=== PATIENT | male | born 1985 | race Caucasian/White ===

== ENCOUNTER 2018-07-26 19:34 | Emergency (ER) | payer MEDICAID, SELFPAY ==
[2018-07-26 19:43] VITALS: BP 119/54; PULSE 67; RESP 18; TEMP 36.4; O2SAT 100
--- NOTE | 2018-07-26 20:32 | ED.GENADUL ---
Disposition Clinical Impression: Leg laceration Disposition: HOME Condition: Fair Instructions: Care For Your Stitches (ED), Laceration (ED) Additional Instructions: Keep wound clean, dry, covered. Monitor for signs of infection including redness, warmth, drainage, fever/chills, discharge. If these arise please seek care urgently once again. Keep current dressing on for the next 24 hours. After that time, please cover with dry Band-Aid. He may wash with running water but do not soak or submerge this will increase her risk of infection. Please return in 10 days for suture removal. Seek care sooner if you develop new or worsening symptoms. Referrals: Gibran Doshi [Primary Care Provider] - Medical Decision Making - Medical Decision Making Patient presents today with chief complaint of laceration to the posterior aspect of the right lower extremity. Wound is not actively bleeding. Will obtain patient's tetanus status. Was approximately 4 cm in length located in the posterior medial right lower extremity. Exam is otherwise without acute abnormality. Calf is otherwise soft and nontender. Good range of motion of the ankle. Sensation is intact. Patient I discussed options for closure. We discussed risk/benefits as well as expected procedural steps. He voiced understanding and wished to proceed. Last tetanus was in 2011. Procedure note: Using standard sterile technique, the wound was anesthetized with 1% lidocaine plain, 8 cc was used.. Wound was then copiously irrigated with sterile saline and cleansed chlorhexidine. Wound is explored to base in a bloodless field. No foreign body debris was noted. Using 4-0 nylon, the wound was closed with #4 horizontal mattress sutures and #1 simple interrupted stitches. Patient tolerated procedure well. Patient I discussed wound care in depth. We discussed the signs symptoms of infection when to seek care urgently once again. He will keep current dressing on for the next 24 hours. After that time, he will cover with a new sterile dressing. Advised he may wash with running water and soap that he should not soak or submerge this will increase his risk of infection. He will return in 10 days for suture removal. All his questions and concerns were addressed and he is in agreement this plan. History of Present Illness - General Chief complaint: Laceration Stated complaint: LEG LACERATION Time Seen by Provider: 07/26/18 19:44 Source: patient, RN notes reviewed Mode of arrival: ambulatory Limitations: no limitations - History of Present Illness Initial comments: Patient is a 32-year-old male presenting today with chief complaint of laceration to the posterior medial aspect of the right lower leg. He reports a prior to arrival he was trying to cut a plastic bucket with a knife when he slipped while afterwards body slicing his leg. Unknown tetanus status. Denies other injury the time the incident. Denies any altered sensation. States that he has had some discomfort over the affected area with ambulation. - Related Data Buprenorphine HCl/Naloxone HCl [Suboxone 12 mg-3 mg Sl Film] 1 each SL DAILY film 03/08/18 Allergies Allergy/AdvReac Type Severity Reaction Status Date / Time No Known Allergies Allergy Unverified 07/26/18 19:50 Review of Systems Constitutional: no symptoms reported Respiratory: no symptoms reported Musculoskeletal: as per HPI Skin: as per HPI Neurological: as per HPI Past Medical History - Past Medical History Medical history: no medical history Psychiatric history: attention deficit General Exam - General Limitations: no limitations General appearance: alert, in no apparent distress - Eye Eye exam: Present: normal apperance - Respiratory Respiratory exam: Absent: respiratory distress - Extremities Exam Extremities exam: Present: full ROM, tenderness, normal capillary refill. Absent: normal inspection (Exam the patient's right lower extremity is significant for a 4 cm linear laceration that extends down the posterior medial aspect of the right lower extremity. Wound is approximately 5 cm inferior to the flexor surface of the knee. Wound is not actively bleeding. Appears to be into the subcutaneous tissue. I do not see any evidence of muscular or tendinous involvement. No knee effusion. No surrounding erythema. No discharge. Calf is soft and nontender. Good range of motion of the ankle. Sensation remains intact distal to the wound. Wound edges are by approximately 5 mm.), pedal edema, joint swelling, calf tenderness - Neurological Exam Neurological exam: Present: alert, abnormal gait (Antalgic gait) - Psychiatric Psychiatric exam: Present: normal affect, normal mood - Skin Skin exam: Absent: intact (As above) Course Vital Signs - 24 hr 07/26/18 19:43 Temperature 36.4 C L Pulse 67 Respiratory 18 Rate Blood Pressure 119/54 Pulse Oximetry 100
== END 2018-07-26 21:02 | disposition home or self-care (01) ==
PROVIDERS: Emergency Provider Student in an Organized Health Care Education/Training Program; PCP Family Medicine
DX: S81.811A Laceration without foreign body, right lower leg, initial encounter (principal); W26.0XXA Contact with knife, initial encounter
CPT/HCPCS: 12002

== ENCOUNTER 2019-03-07 12:47 | Emergency (ER) | payer MEDICAID, SELFPAY ==
[2019-03-07 12:50] VITALS: BP 132/70; PULSE 77; RESP 20; TEMP 36.9; O2SAT 100
--- NOTE | 2019-03-07 12:59 | ED.GENADUL_ITS ---
Discharge Plan Disposition Patient Disposition: HOME Condition: Improving Discharge Details Chief Complaint: EarProblem Clinical Impression: Acute right otitis media Primary Care Provider: Gibran Doshi ED Provider: Keith Workman Home Meds and New Rx's Prescriptions: New amoxicillin-pot clavulanate 875-125 mg tablet 1 tab PO BID 10 Days Qty: 20 RF: 0 Continued buprenorphine-naloxone [Suboxone] 1 EACH film 1 film Sublingual DAILY RF: 0 Discharge Instructions Instructions: Otitis Media (ED) Additional Instructions: Home to rest this evening. Small, frequent sips of fluids to maintain hydration. Tylenol if needed for discomfort. Take antibiotics as prescribed. As we discussed, I recommend you have a [id number] probiotic or live culture yogurt once daily in between the doses of antibiotics. Return for any acute concerns. Medical Decision Making 33-year-old male with recent URI presents with right ear pain over 1 days time. He is afebrile, well-appearing, exam is reassuring but does demonstrate evidence of acute right otitis media. I will treat with a course of Augmentin. Discussed with him the use of probiotic or live culture yogurt to offset any GI effects. He is stable for discharge to home at this time. HPI General Mode of arrival: ambulatory . Date/Time Provider Initiated Documentation: 03/07/19 12:50 . Limitations to Documentation: no limitations . Information obtained by: patient . History of Present Illness 33 year old M presents to the emergency department with the chief complaint of Right ear pain in the face of recent URI with rhinorrhea, described as moderate, Quality is described as dull and constant, and is localized to the head and right. Patient reports no radiation. and it has been constant. No relieving factors improve symptom(s), No exacerbating factors reported . Patient notes cough. Patient did receive the following treatments prior to arrival, none Related Data Home Medications Medication Instructions Recorded Confirmed buprenorphine-naloxone [Suboxone] 1 film SUBLINGUAL DAILY film 03/08/18 03/07/19 amoxicillin-pot clavulanate 1 tab PO BID 10 Days #20 tab 03/07/19 Previous Rx's Medication Instructions Recorded amoxicillin-pot clavulanate 1 tab PO BID 10 Days #20 tab 03/07/19 Allergies Allergy/AdvReac Type Severity Reaction Status Date / Time No Known Allergies Allergy Unverified 03/07/19 12:52 General Stated Complaint: EarProblem KAITLIN: 4 Review of Systems Review of Systems 6systems reviewed and otherwise negative [facility] Medical History Attention deficit hyperactivity disorder Hearing loss Surgical History Arthroscopy (10/02/12) mastoidectomy removal Family History Mother Personal history of malignant neoplasm Father No problems noted. Sister No problems noted. Social History Smoking/Tobacco Use Status: Current every day Alcohol Intake: current Alcohol Intake frequency: holidays/special occasions only Drug use: Occasionally Substance use type: former substance user and marijuana Do you feel safe at home: Yes Do you feel safe in your relationship?: Yes Exam Narrative Exam Narrative: GEN: awake, alert, oriented 3. Pleasant, well groomed, interactive. HEAD: Normocephalic, atraumatic ENT: Mucous membranes moist, oropharynx unremarkable, External ear exam unremarkable. Right tympanic membrane is significantly distended and erythematous with loss of light reflex, left tympanic membranes partially occluded with cerumen but otherwise unremarked EYES: PERRL, EOMI NECK: Full ROM, no MAEGAN, no menigismus CHEST/RESP: Nontender, clear to auscultation bilateral, no wheeze/rhonchi/rales CARDIOVASCULAR: RRR, no murmur, rub danyelle. 2+ Rad pulse bilateral EXT: Full ROM, no edema, no rash Neuro: Grossly normal neurologic exam, conversant, interactive. Psych: Speech fluent, thoughts congruent, affect normal Course Vital Signs Temperature 36.9 C 03/07/19 12:50 Pulse 77 03/07/19 12:50 Respiratory Rate 20 03/07/19 12:50 Blood Pressure 132/70 03/07/19 12:50 Pulse Oximetry 100 03/07/19 12:50 Temperature 36.9 C 03/07/19 12:50 Temperature Source Temporal Artery Scan 03/07/19 12:50 Pulse 77 03/07/19 12:50 Respiratory Rate 20 03/07/19 12:50 Respiratory Effort Non-Labored 03/07/19 12:50 Blood Pressure 132/70 03/07/19 12:50 Pulse Oximetry 100 03/07/19 12:50 Oxygen Delivery Method Room Air 03/07/19 12:50 Oxygen Flow Rate 0 03/07/19 12:50 Pain Level 8 03/07/19 12:50
[2019-03-07 15:52] VITALS: BP 132/70; PULSE 77; RESP 20; TEMP 36.9; O2SAT 100
== END 2019-03-07 13:29 | disposition home or self-care (01) ==
LOC: ER 13:19
PROVIDERS: Emergency Provider Emergency Medicine; PCP Family Medicine
DX: H66.91 Otitis media, unspecified, right ear (principal); F17.210 Nicotine dependence, cigarettes, uncomplicated
CPT/HCPCS: 99283

== ENCOUNTER 2019-05-18 10:53 | Emergency (ER) | payer MEDICAID, SELFPAY ==
[2019-05-18 10:57] VITALS: BP 133/67; PULSE 62; RESP 15; TEMP 36.7; O2SAT 98
--- NOTE | 2019-05-18 11:03 | DI.RAD_ITS ---
SYMPTOM/DIAGNOSIS: STEPPED ON NAIL, ? FOREIGN BODY RIGHT FOOT: No fracture or dislocation is seen. There is no radiopaque foreign body. There is no abnormal soft tissue gas collection. IMPRESSION: Negative right foot.
--- NOTE | 2019-05-18 11:04 | W.ED.GENAD ---
Discharge Plan Disposition Patient Disposition: HOME Condition: Good Discharge Details Chief Complaint: Laceration Clinical Impression: Puncture wound of foot Primary Care Provider: Gibran Doshi ED Provider: Radha Garcia Home Meds and New Rx's Prescriptions: New cephalexin [Keflex] 500 mg capsule 500 mg PO BID Qty: 10 RF: 0 Continued buprenorphine-naloxone [Suboxone] 1 EACH film 1 film Sublingual DAILY RF: 0 Discharge Instructions Instructions: Puncture Wound (ED) Additional Instructions: Keep wound clean and dry. Monitor for signs of infection including redness, warmth, drainage, increased pain, fever/chills. If these or other new/worsening symptoms arise please seek care urgently once again. Please take antibiotics as prescribed to help prevent infection. Please follow-up with primary care next week for wound evaluation. Stand Alone Forms: Work Release Referrals: Gibran Doshi [Primary Care Provider] - Discharge Data Discharge Date/Time-TO BE ENTERED AT DEPARTURE: 05/18/19 11:56 Medical Decision Making Patient is a 33 year old male presenting today after stepping on a nail. States that he was working with a friend and stepped on a nail through his shoe. No other injury at the time of the incident. Denies numbness/tingling/weakness. Last tetanus 2011, will update this today. On exam, shu has a 3mm puncture wound to forefoot. Piece of what appears to be the sole of his shoe, was sitting at the opening, this was removed. No other FB/debris noted. Will obtain XR to evaluate for retained metal. Plan to update tetanus, begin on abx. Will give Tylenol and Ibuprofen for pain. XR reviewed by myself and radiologist, no FB or bony abnormality noted. Discussed these findings with the patient. His tetanus is updated today. We placed prophylactically on Keflex. Wound was copiously irrigated by nursing staff. He was given strict return precautions. Work note at his request. Advise follow-up with primary care next week for wound check. All of his questions and concerns were addressed and he is in agreement this plan HPI General Mode of arrival: ambulatory. Date/Time Provider Initiated Documentation: 05/18/19 10:57. Limitations to Documentation: no limitations. Information obtained by: patient and RN notes reviewed. History of Present Illness 33 year old M presents to the emergency department with the chief complaint of stepped on nail, puncture wound right foot, described as moderate, with intensity rated at 8. Quality is described as sharp, and is localized to the right and lower extremity. Patient reports no radiation. Patient started experiencing this minute(s) and it has been constant. Immobilization improves symptom(s), Movement worsens symptoms (worse with WB activities) . Patient notes no other symptoms.. Patient did receive the following treatments prior to arrival, none Related Data Home Medications Medication Instructions Recorded Confirmed buprenorphine-naloxone [Suboxone] 1 film SUBLINGUAL DAILY film 03/08/18 05/18/19 cephalexin [Keflex] 500 mg PO BID #10 cap 05/18/19 Previous Rx's Medication Instructions Recorded cephalexin [Keflex] 500 mg PO BID #10 cap 05/18/19 Allergies Allergy/AdvReac Type Severity Reaction Status Date / Time No Known Allergies Allergy Unverified 05/18/19 11:01 General Stated Complaint: Laceration KAITLIN: 4 Review of Systems Constitutional Reports as per HPI, Denies chills and Denies fever(s) Musculoskeletal Reports as per HPI Integumentary/Breasts Reports as per HPI Neurologic Reports as per HPI, Denies sensory deficit and Denies paresthesias [facility] Medical History Attention deficit hyperactivity disorder Hearing loss Surgical History Arthroscopy (10/02/12) mastoidectomy removal Social History Smoking/Tobacco Use Status: Current every day Alcohol Intake: current Alcohol Intake frequency: holidays/special occasions only Drug use: Occasionally Substance use type: former substance user and marijuana Do you feel safe at home: Yes Do you feel safe in your relationship?: Yes Exam Const General: cooperative, healthy appearing, comfortable, no acute distress and well developed Nutritional Appearance: average body habitus and well nourished Orientation: alert and awake Resp Effort & Inspection: normal respiratory effort, able to speak in complete sentences and no respiratory distress Cardio Rate: regular rate Rhythm: regular rhythm Neuro General: alert and awake Cognition: normal cognition Speech: speech normal Gait: normal gait Sensory Exam: no sensory deficits noted Extrem General: abnormal to inspection (skin as above), full ROM, normal capillary refill, normal exam except as noted (puncture wound as above), no joint enlargement, no pedal edema, no calf tenderness and normal gait Right lower extremity: full ROM, normal capillary refill, no joint enlargement and foot Details: normal capillary refill, tenderness Location: of the dorsal foot (over puncture wound on forefoot) Location: distally, toes with normal ROM, no edema, puncture wound, vascular exam Details: dorsalis pedis pulse present, posterior tibial pulse present and normal capillary refill, tendon exam Details: active flexion normal and active extension normal and motor-sensory exam Details: light-touch normal; abnormal to inspection (u), no unusual warmth, no abrasion and no ecchymosis Psych Appearance: grossly normal and well kempt Mental Status: mental status grossly normal Speech and Movement: speech and movement normal Course Vital Signs Temperature 36.7 C 05/18/19 10:57 Pulse 62 05/18/19 10:57 Respiratory Rate 15 05/18/19 10:57 Blood Pressure 133/67 05/18/19 10:57 Pulse Oximetry 98 05/18/19 10:57 Temperature 36.7 C 05/18/19 10:57 Temperature Source Temporal Artery Scan 05/18/19 10:57 Pulse 62 05/18/19 10:57 Respiratory Rate 15 05/18/19 10:57 Respiratory Effort Non-Labored 05/18/19 11:00 Blood Pressure 133/67 05/18/19 10:57 Blood Pressure Position Supine 05/18/19 10:57 Pulse Oximetry 98 05/18/19 10:57 Oxygen Delivery Method Room Air 05/18/19 10:57 Oxygen Flow Rate 0 05/18/19 10:57 Pain Level 8 05/18/19 10:57
--- NOTE | 2019-05-18 11:07 | ED.GENADUL_ITS ---
Discharge Plan Disposition Patient Disposition: HOME Condition: Good Discharge Details Chief Complaint: Laceration Clinical Impression: Puncture wound of foot Primary Care Provider: Gibran Doshi ED Provider: Radha Garcia Home Meds and New Rx's Prescriptions: New cephalexin [Keflex] 500 mg capsule 500 mg PO BID Qty: 10 RF: 0 Continued buprenorphine-naloxone [Suboxone] 1 EACH film 1 film Sublingual DAILY RF: 0 Discharge Instructions Instructions: Puncture Wound (ED) Additional Instructions: Keep wound clean and dry. Monitor for signs of infection including redness, warmth, drainage, increased pain, fever/chills. If these or other new/worsening symptoms arise please seek care urgently once again. Please take antibiotics as prescribed to help prevent infection. Please follow-up with primary care next week for wound evaluation. Stand Alone Forms: Work Release Referrals: Gibran Doshi [Primary Care Provider] - Discharge Data Discharge Date/Time-TO BE ENTERED AT DEPARTURE: 05/18/19 11:56 Medical Decision Making Patient is a 33 year old male presenting today after stepping on a nail. States that he was working with a friend and stepped on a nail through his shoe. No other injury at the time of the incident. Denies numbness/tingling/weakness. Last tetanus 2011, will update this today. On exam, shu has a 3mm puncture wound to forefoot. Piece of what appears to be the sole of his shoe, was sitting at the opening, this was removed. No other FB/debris noted. Will obtain XR to evaluate for retained metal. Plan to update tetanus, begin on abx. Will give Tylenol and Ibuprofen for pain. XR reviewed by myself and radiologist, no FB or bony abnormality noted. Discussed these findings with the patient. His tetanus is updated today. We placed prophylactically on Keflex. Wound was copiously irrigated by nursing staff. He was given strict return precautions. Work note at his request. Advise follow-up with primary care next week for wound check. All of his questions and concerns were addressed and he is in agreement this plan HPI General Mode of arrival: ambulatory . Date/Time Provider Initiated Documentation: 05/18/19 10:57 . Limitations to Documentation: no limitations . Information obtained by: patient and RN notes reviewed . History of Present Illness 33 year old M presents to the emergency department with the chief complaint of stepped on nail, puncture wound right foot, described as moderate, with intensity rated at 8. Quality is described as sharp, and is localized to the right and lower extremity. Patient reports no radiation. Patient started experiencing this minute(s) and it has been constant. Immobilization improves symptom(s), Movement worsens symptoms (worse with WB activities) . Patient notes no other symptoms.. Patient did receive the following treatments prior to arrival, none Related Data Home Medications Medication Instructions Recorded Confirmed buprenorphine-naloxone [Suboxone] 1 film SUBLINGUAL DAILY film 03/08/18 05/18/19 cephalexin [Keflex] 500 mg PO BID #10 cap 05/18/19 Previous Rx's Medication Instructions Recorded cephalexin [Keflex] 500 mg PO BID #10 cap 05/18/19 Allergies Allergy/AdvReac Type Severity Reaction Status Date / Time No Known Allergies Allergy Unverified 05/18/19 11:01 General Stated Complaint: Laceration KAITLIN: 4 Review of Systems Constitutional Reports as per HPI, Denies chills and Denies fever(s) Musculoskeletal Reports as per HPI Integumentary/Breasts Reports as per HPI Neurologic Reports as per HPI, Denies sensory deficit and Denies paresthesias [facility] Medical History Attention deficit hyperactivity disorder Hearing loss Surgical History Arthroscopy (10/02/12) mastoidectomy removal Social History Smoking/Tobacco Use Status: Current every day Alcohol Intake: current Alcohol Intake frequency: holidays/special occasions only Drug use: Occasionally Substance use type: former substance user and marijuana Do you feel safe at home: Yes Do you feel safe in your relationship?: Yes Exam Const General: cooperative, healthy appearing, comfortable, no acute distress and well developed Nutritional Appearance: average body habitus and well nourished Orientation: alert and awake Resp Effort & Inspection: normal respiratory effort, able to speak in complete sentences and no respiratory distress Cardio Rate: regular rate Rhythm: regular rhythm Neuro General: alert and awake Cognition: normal cognition Speech: speech normal Gait: normal gait Sensory Exam: no sensory deficits noted Extrem General: abnormal to inspection (skin as above), full ROM, normal capillary refill, normal exam except as noted (puncture wound as above), no joint enlargement, no pedal edema, no calf tenderness and normal gait Right lower extremity: full ROM, normal capillary refill, no joint enlargement and foot Details: normal capillary refill, tenderness Location: of the dorsal foot (over puncture wound on forefoot) Location: distally, toes with normal ROM, no edema, puncture wound, vascular exam Details: dorsalis pedis pulse present, posterior tibial pulse present and normal capillary refill, tendon exam Details: active flexion normal and active extension normal and motor-sensory exam Details: light-touch normal; abnormal to inspection (u), no unusual warmth, no abrasion and no ecchymosis Psych Appearance: grossly normal and well kempt Mental Status: mental status grossly normal Speech and Movement: speech and movement normal Course Vital Signs Temperature 36.7 C 05/18/19 10:57 Pulse 62 05/18/19 10:57 Respiratory Rate 15 05/18/19 10:57 Blood Pressure 133/67 05/18/19 10:57 Pulse Oximetry 98 05/18/19 10:57 Temperature 36.7 C 05/18/19 10:57 Temperature Source Temporal Artery Scan 05/18/19 10:57 Pulse 62 05/18/19 10:57 Respiratory Rate 15 05/18/19 10:57 Respiratory Effort Non-Labored 05/18/19 11:00 Blood Pressure 133/67 05/18/19 10:57 Blood Pressure Position Supine 05/18/19 10:57 Pulse Oximetry 98 05/18/19 10:57 Oxygen Delivery Method Room Air 05/18/19 10:57 Oxygen Flow Rate 0 05/18/19 10:57 Pain Level 8 05/18/19 10:57
[2019-05-18] MEDS: Acetaminophen 325 MG TAB 650 MG PO (11:12)
[2019-05-18] MEDS: Ibuprofen 600 MG TAB PO (11:12)
[2019-05-18 11:54] VITALS: BP 123/71; PULSE 55; RESP 18; TEMP 36.8; O2SAT 99
== END 2019-05-18 11:56 | disposition home or self-care (01) ==
PROVIDERS: Emergency Provider Physician Assistant; PCP Family Medicine
DX: S91.331A Puncture wound without foreign body, right foot, initial encounter (principal); W45.8XXA Other foreign body or object entering through skin, initial encounter
CPT/HCPCS: 90471; 99283; 73630; 99282

== ENCOUNTER 2019-07-05 10:27 | Emergency (ER) | payer MEDICAID, SELFPAY ==
[2019-07-05 10:30] VITALS: BP 147/85; PULSE 75; RESP 20; TEMP 36; O2SAT 97
--- NOTE | 2019-07-05 10:40 | ED.GENADUL_ITS ---
Discharge Plan Discharge Details Chief Complaint: Trauma Primary Care Provider: Gibran Doshi ED Provider: Keith Workman Home Meds and New Rx's Prescriptions: No Action buprenorphine-naloxone [Suboxone] 1 EACH film 1 film Sublingual DAILY RF: 0 Medical Decision Making 33-year-old male who was painting on a stepladder and while distending it, slipped and fell in a tumbling fashion down a flight of stairs. He denied a loss of consciousness. He complains of left shoulder, left hip, left knee pain. No head/neck/chest/back/abdomen discomfort. Slightly hypertensive at 147/85, otherwise unremarkable vital signs. He does have tenderness overlying the joints of the left shoulder, left hip, left knee. Given acetaminophen, ice, referred for x-ray. No acute findings on knee or hip radiographs. There is question of small nondisplaced acromion fracture. I discussed with Dr. Banks will treat with immobilization in sling and follow- up in orthopedic clinic. Patient has normal motor, sensory, vascular testing. No indication for further work-up at this time. Patient stable and appropriate for discharge. HPI General Date/Time Provider Initiated Documentation: 07/05/19 10:31 . Limitations to Documentation: no limitations . Information obtained by: patient . History of Present Illness 33 year old M presents to the emergency department with the chief complaint of Fall and left- sided pain, Quality is described as dull and constant, and is localized to the left, upper extremity and lower extremity. Patient reports no radiation. Patient started experiencing this minute(s) and it has been constant. No relieving factors improve symptom(s), No exacerbating factors reported . Patient notes no other symptoms.; denies chest pain and headaches. Patient did receive the following treatments prior to arrival, none Related Data Home Medications Medication Instructions Recorded Confirmed buprenorphine-naloxone [Suboxone] 1 film SUBLINGUAL DAILY film 03/08/18 07/05/19 Allergies Allergy/AdvReac Type Severity Reaction Status Date / Time No Known Allergies Allergy Unverified 07/05/19 10:40 General Stated Complaint: Trauma KAITLIN: 2 Review of Systems Review of Systems No headache. He denies neck/back/chest/abdomen discomfort. No loss of consciousness. 6 systems reviewed and otherwise - [facility] Medical History Attention deficit hyperactivity disorder Hearing loss Surgical History Arthroscopy (10/02/12) mastoidectomy removal Social History Smoking/Tobacco Use Status: Current every day Alcohol Intake: current Alcohol Intake frequency: holidays/special occasions only Drug use: Occasionally Substance use type: former substance user and marijuana Do you feel safe at home: Yes Do you feel safe in your relationship?: Yes Exam Narrative Exam Narrative: GEN: awake, alert, oriented 3. Pleasant, well groomed, interactive. HEAD: Normocephalic, atraumatic ENT: Mucous membranes moist, oropharynx unremarkable, External ear exam unremarkable EYES: PERRL, EOMI NECK: Full ROM, no MAEGAN, no menigismus CHEST/RESP: Nontender, clear to auscultation bilateral, no wheeze/rhonchi/rales CARDIOVASCULAR: RRR, no murmur, rub danyelle. 2+ Rad pulse bilateral ABDOMEN: Soft, nontender, no mass. +Bowel sounds EXT: Full ROM, no edema, no rash. Left AC joint tender to palpation. Upper extremity motor is 5 out of 5 and sensation intact throughout. The left lateral hip is tender to palpation. Normal internal and external rotation. Motor 5 out of 5 in the lower extremity. Left anterior knee tender with note of mild ecchymosis present. No laxity of the joint. Neuro: Grossly normal neurologic exam, conversant, interactive. Psych: Speech fluent, thoughts congruent, affect normal Course Vital Signs Temperature 36 C L 07/05/19 10:30 Pulse 75 07/05/19 10:30 Respiratory Rate 20 07/05/19 10:30 Blood Pressure 147/85 H 07/05/19 10:30 Pulse Oximetry 97 07/05/19 10:30 Temperature 36 C L 07/05/19 10:30 Temperature Source Temporal Artery Scan 07/05/19 10:30 Pulse 75 07/05/19 10:30 Respiratory Rate 20 07/05/19 10:30 Respiratory Effort Non-Labored 07/05/19 10:34 Respiratory Depth Normal 07/05/19 10:34 Respiratory Pattern Normal 07/05/19 10:34 Blood Pressure 147/85 H 07/05/19 10:30 Pulse Oximetry 97 07/05/19 10:30 Oxygen Delivery Method Room Air 07/05/19 10:30 Oxygen Flow Rate 0 07/05/19 10:30 Pain Level 6 07/05/19 10:34
[2019-07-05] MEDS: Acetaminophen 500 MG TAB 1000 MG PO (10:46)
--- NOTE | 2019-07-05 11:14 | DI.RAD_ITS ---
SYMPTOM/DIAGNOSIS: FELL, KNEE, HIP AND SHOULDER PAIN LEFT HIP: Two views were obtained. No fracture is seen. LEFT SHOULDER: Five views were obtained. There are mild hypertrophic degenerative changes of the acromioclavicular joint. There is mild deformity of the acromion at the AC joint, nondisplaced fracture not excluded. Clinical correlation requested regarding the site of the patient's injury. There is no evidence of a glenohumeral dislocation. CONCLUSION: Questionable findings involving the acromion, nondisplaced acromial fracture not excluded. Please correlate clinically and if clinically indicated, additional evaluation with CT may be considered. LEFT KNEE: Three views were obtained. There are marginal osteophytes noted at multiple sites involving the bones of the knee. No evidence of acute fracture or dislocation.
== END 2019-07-05 12:07 | disposition home or self-care (01) ==
PROVIDERS: Emergency Provider Emergency Medicine; PCP Family Medicine
DX: M25.512 Pain in left shoulder (principal); M25.552 Pain in left hip; M25.562 Pain in left knee; W11.XXXA Fall on and from ladder, initial encounter; W10.8XXA Fall (on) (from) other stairs and steps, initial encounter
CPT/HCPCS: 73562; 99284; 73030; 73502; L3650

== ENCOUNTER 2020-06-06 19:55 | Emergency (ER) | payer MEDICAID, SELFPAY ==
[2020-06-06 20:00] VITALS: BP 149/78; PULSE 73; RESP 16; TEMP 36.7; O2SAT 98
--- NOTE | 2020-06-06 20:03 | ED.GENADUL_ITS ---
Discharge Plan Disposition Patient Disposition: HOME Condition: Good Discharge Details Chief Complaint: Orthopedic Clinical Impression: Abscess of finger of left hand Primary Care Provider: Gibran Doshi ED Provider: Thomas Peña Home Meds and New Rx's Prescriptions: New cephalexin 500 mg capsule 500 mg PO Q8H Qty: 20 RF: 0 Continued buprenorphine-naloxone [Suboxone] 12-3 mg film 1 film Sublingual DAILY RF: 0 Discharge Instructions Instructions: Abscess (ED) Additional Instructions: Infection should get better now that wound is open and allowing for drainage. Try to keep the wound open for a few days to allow for drainage. Keep it clean, dry and covered. Antibiotic as directed. Acetaminophen or ibuprofen as needed for pain. Elevate hand for swelling. Return to ED for increasing pain, swelling, spreading redness especially up the back of the hand or arm, fever. Referrals: [facility] [Provider Group] Gibran Doshi. [Primary Care Provider] - Medical Decision Making Patient with wound infection/abscess of the left index finger. Tetanus is up-to-date. Discussed options with patient. Digital block done with lidocaine 1% plain. Finger prepped with Betadine. Incised along the cuticle just above the nail as well as the prior laceration site. Some purulent material expressed along with some bleeding which was easily controlled. Patient will be started on cephalexin. Ibuprofen or acetaminophen for pain. Elevate extremity for the next few days. Watch for worsening infection and return to ED if worsening redness/swelling/pain, fever, progression of arm. HPI General Mode of arrival: ambulatory . Date/Time Provider Initiated Documentation: 06/06/20 20:03 . Limitations to Documentation: no limitations . Information obtained by: patient and RN notes reviewed . HPI Narrative: Patient presents to ED with left index finger pain and swelling. Patient is left-hand dominant. Sustained the initial injury approximately 2 weeks ago on a napper grinder. Laceration to the distal dorsal part of the index finger which she took care of at home. It had healed up for the most part but in the last 24 hours has now become swollen, painful, red and draining purulent material. Denies any systemic symptoms. Thought about opening it back up on his own at home but decided he should come here to have it done. Related Data Home Medications Medication Instructions Recorded Confirmed buprenorphine 12 mg-naloxone 3 mg 1 film SUBLINGUAL DAILY film 09/03/19 09/03/19 sublingual film cephalexin 500 mg PO Q8H #20 cap 06/06/20 Previous Rx's Medication Instructions Recorded cephalexin 500 mg PO Q8H #20 cap 06/06/20 Allergies Allergy/AdvReac Type Severity Reaction Status Date / Time No Known Allergies Allergy Unverified 07/05/19 10:40 General Stated Complaint: Orthopedic KAITLIN: 4 Review of Systems Constitutional Constitutional: Denies chills and Denies fever(s) Integumentary/Breasts Skin/Breast: Reports erythema and Reports wounds [facility] Medical History Attention deficit hyperactivity disorder Hearing loss Surgical History Arthroscopy (10/02/12) left knee mastoidectomy on the left as a child removal 10/27/98 removal of cholesteatoma left ear canal Social History Smoking/Tobacco Use Status: Current every day Tobacco Type: cigarettes Smoking packs per day: 1 Smoking cigarettes per day: 20.0 Alcohol Intake: current Alcohol Intake frequency: holidays/special occasions only Drug use: Occasionally Substance use type: former substance user and marijuana Do you feel safe at home: Yes Do you feel safe in your relationship?: Yes Exam Const General: cooperative, healthy appearing, comfortable and no acute distress Orientation: alert and oriented x3 HENMT Head: normocephalic and atraumatic Resp Effort & Inspection: normal respiratory effort Skin Wounds: wounds noted (L index finger behind cuticle w/ wound w/ erythema/swelling/fluctuance) Extrem Other: Left hand with wound as described above. Otherwise normal hand with normal cap refill, sensation, range of motion. Course Vital Signs Vital signs: Vital Signs Temperature 98.1 F 06/06/20 20:00 Pulse 73 06/06/20 20:00 Respiratory Rate 16 06/06/20 20:00 Blood Pressure 149/78 H 06/06/20 20:00 Pulse Oximetry 98 06/06/20 20:00 Temperature 98.1 F 06/06/20 20:00 Temperature Source Temporal Artery Scan 06/06/20 20:00 Pulse 73 06/06/20 20:00 Respiratory Rate 16 06/06/20 20:00 Blood Pressure 149/78 H 06/06/20 20:00 Blood Pressure Position Sitting 06/06/20 20:00 Pulse Oximetry 98 06/06/20 20:00 Oxygen Delivery Method Room Air 06/06/20 20:00 Oxygen Flow Rate 0 06/06/20 20:00 Pain Level 6 06/06/20 20:00 Procedures Abscess I/D Site: Hand Side (if applicable): Left Technique: Incised with #11 Blade Amount of fluid expressed (mL): 0.5 Irrigation: Yes Packing used?: None Complications: Bleeding (minimal) Nerve Block Nerve Block 1: Time out performed: Yes Local Anesthetic: Lidocaine 1% Amount of anesthesia used (mL): 4 Side: left Nerve Blocks: digital Procedure Successful: Yes Patient Tolerated Procedure: well Complications: none
[2020-06-06] MEDS: Cephalexin 500 MG CAP, 2 CAPS/BTL PO (20:38)
== END 2020-06-06 20:45 | disposition home or self-care (01) ==
PROVIDERS: Emergency Provider Emergency Medicine; PCP Family Medicine
DX: S61.211A Laceration without foreign body of left index finger without damage to nail, initial encounter (principal); L02.512 Cutaneous abscess of left hand; W31.1XXA Contact with metalworking machines, initial encounter
CPT/HCPCS: 10060

== ENCOUNTER 2020-11-19 10:12 | Outpatient (CLI) | payer MEDICAID, SELFPAY ==
[2020-11-20 18:46] LABS: COVID-19 RT-PCR UVMMC Result Negative (Negative)
== END 2020-11-19 10:32 ==
PROVIDERS: PCP Family Medicine; Visit Provider Family Medicine
DX: Z20.828 Contact with and (suspected) exposure to other viral communicable diseases (principal)
CPT/HCPCS: U0003

== ENCOUNTER 2020-12-16 08:12 | Emergency (ER) | payer MEDICAID, SELFPAY ==
--- NOTE | 2020-12-16 08:15 | DI.RAD_ITS ---
EXAM: XR HAND RT COMPLETE CLINICAL HISTORY: Crush injury. TECHNIQUE: 2D digital imaging was performed. COMPARISON: No exams were available for comparison FINDINGS: BONES: No acute fracture is present. No bony destructive lesion is seen. JOINTS: No dislocation present. SOFT TISSUE: Generalized soft tissue swelling of the hand. No radiopaque foreign bodies are identifi ed. IMPRESSION: 1. No acute fracture or dislocation. 2. Generalized soft tissue swelling of the hand. DATA REPOSITORY: RADIATION DOSE DELIVERED:
[2020-12-16 08:16] VITALS: BP 147/78; PULSE 77; RESP 15; TEMP 36.7; O2SAT 97
--- NOTE | 2020-12-16 08:21 | W.ED.GENAD ---
Discharge Plan Disposition Patient Disposition: HOME Condition: Stable Discharge Details Clinical Impression: Crushing injury of hand, right Primary Care Provider: Gibran Doshi ED Provider: Sheri Andrews Home Meds and New Rx's Prescriptions: No Action buprenorphine-naloxone [Suboxone] 12-3 mg film 1 film Sublingual DAILY RF: 0 Discharge Instructions Instructions: Crush Injury (ED) Additional Instructions: Rest, Ice, Compression, elevation. Please take Tylenol or Ibuprofen with food every 4-6 hours as needed for pain and swelling. X-ray today shows no broken bones. Please return to the ED if swelling increases severe pain not relieved by Tylenol or ibuprofen, if there appears to be any problems with circulation to your fingers or any concerns. Follow up with primary care provider in 3-5 days. Return to ED sooner if any worsening or concerns. Increase oral fluids. Stand Alone Forms: Work Release Referrals: Gibran Doshi. [Primary Care Provider] - Medical Decision Making 35-year-old male presents to the ED with chief complaint of right hand pain after a crush type injury this morning at work. Patient reports he was putting some rafters of when a beam fell onto his right hand while he was on the ladder. He denies any other injuries. He does have superficial ecchymosis and abrasions noted to the dorsum of his right hand tenderness over the snuffbox and thumb. Hand is pink warm dry, cap refill less than 2 sec. He does have full flexion and extension of his right wrist and elbow. He does take Suboxone daily. He did not take any Tylenol or ibuprofen prior to arrival. EXAM: XR HAND RT COMPLETE CLINICAL HISTORY: Crush injury. TECHNIQUE: 2D digital imaging was performed. COMPARISON: No exams were available for comparison FINDINGS: BONES: No acute fracture is present. No bony destructive lesion is seen. JOINTS: No dislocation present. SOFT TISSUE: Generalized soft tissue swelling of the hand. No radiopaque foreign bodies are identified. IMPRESSION: 1. No acute fracture or dislocation. 2. Generalized soft tissue swelling of the hand. Patient given ice pack, and her milligrams ibuprofen and Johan wrap here in department. Discussed strict return instructions and home care, verbalized understanding. Patient remained hemodynamically stable and extremity was neurovascularly intact at the time of this dictation. This text was generated using [employer] system, please disregard any oddities of phrase or misspellings. HPI General Mode of arrival: ambulatory. Date/Time Provider Initiated Documentation: 12/16/20 08:13. Limitations to Documentation: no limitations. Information obtained by: patient. HPI Narrative: 35-year-old male presents to the ED with chief complaint of right hand pain after a crush type injury this morning at work. Patient reports he was putting some rafters of when a beam fell onto his right hand while he was on the ladder. He denies any other injuries. He does have superficial ecchymosis and abrasions noted to the dorsum of his right hand tenderness over the snuffbox and thumb. Hand is pink warm dry, cap refill less than 2 sec. He does have full flexion and extension of his right wrist and elbow. He does take Suboxone daily. He did not take any Tylenol or ibuprofen prior to arrival. Related Data Home Medications Medication Instructions Recorded Confirmed buprenorphine 12 mg-naloxone 3 mg 1 film SUBLINGUAL DAILY film 09/03/19 12/16/20 sublingual film Allergies Allergy/AdvReac Type Severity Reaction Status Date / Time No Known Allergies Allergy Unverified 12/16/20 08:20 General Stated Complaint: Orthopedic KAITLIN: 4 Review of Systems All systems reviewed & are unremarkable except as noted in HPI and below Musculoskeletal Musculoskeletal: Reports arthralgias and Reports joint swelling (Right hand) [facility] Medical History (Updated 12/16/20 @ 09:20 by Sheri Andrews) Attention deficit hyperactivity disorder Hearing loss Surgical History Arthroscopy (10/02/12) left knee mastoidectomy on the left as a child removal 10/27/98 removal of cholesteatoma left ear canal Family History Mother Personal history of malignant neoplasm Breast Father No problems noted. Sister No problems noted. Social History Smoking/Tobacco Use Status: Current every day Tobacco Type: cigarettes Smoking packs per day: 1 Smoking cigarettes per day: 20.0 Smoking risk assessment performed?: Yes Alcohol Intake: current Alcohol Intake frequency: holidays/special occasions only Drug use: Occasionally Substance use type: former substance user and marijuana Do you feel safe at home: Yes Do you feel safe in your relationship?: Yes Exam Const General: cooperative, healthy appearing and well developed Nutritional Appearance: average body habitus and well nourished Orientation: alert, awake and oriented x3 Extrem General: capillary refill normal and normal exam except as noted Right upper extremity: normal capillary refill and hand Details: normal capillary refill, neurosensory exam normal, tenderness, normal ROM of fingers, swelling Location: of the dorsal hand and of the thumb, abrasion Location: of the dorsal hand and ecchymosis Hand/finger images: 1. Ecchymosis superficial abrasion 2. Tenderness and swelling Course Vital Signs Vital signs: Vital Signs Temperature 36.7 C 12/16/20 08:16 Pulse 77 12/16/20 08:16 Respiratory Rate 15 12/16/20 08:16 Blood Pressure 147/78 H 12/16/20 08:16 Pulse Oximetry 97 12/16/20 08:16 Temperature 36.7 C 12/16/20 08:16 Temperature Source Temporal Artery Scan 12/16/20 08:16 Pulse 77 12/16/20 08:16 Respiratory Rate 15 12/16/20 08:16 Respiratory Effort Non-Labored 12/16/20 08:18 Blood Pressure 147/78 H 12/16/20 08:16 Blood Pressure Position Sitting 12/16/20 08:16 Pulse Oximetry 97 12/16/20 08:16 Oxygen Delivery Method Room Air 12/16/20 08:16 Oxygen Flow Rate 0 12/16/20 08:16 Pain Level 7 12/16/20 08:19
[2020-12-16] MEDS: Ibuprofen 800 MG TAB PO (08:24)
== END 2020-12-16 09:33 | disposition home or self-care (01) ==
PROVIDERS: Emergency Provider Registered Nurse Emergency; PCP Family Medicine
DX: S67.21XA Crushing injury of right hand, initial encounter (principal); S60.511A Abrasion of right hand, initial encounter; W20.8XXA Other cause of strike by thrown, projected or falling object, initial encounter; Y99.0 Civilian activity done for income or pay
CPT/HCPCS: 99283; 73130

== ENCOUNTER 2021-03-26 10:34 | Outpatient (CLI) | payer MEDICAID, SELFPAY ==
[2021-03-27 14:04] LABS: COVID-19 RT-PCR UVMMC Result Negative (Negative)
== END 2021-03-26 10:35 | disposition home or self-care (01) ==
PROVIDERS: PCP Family Medicine; Visit Provider Family Medicine
DX: Z20.822 Contact with and (suspected) exposure to COVID-19 (principal)
CPT/HCPCS: U0003

== ENCOUNTER 2022-08-09 17:57 | Emergency (ER) | payer MEDICAID, SELFPAY ==
[2022-08-09 18:22] VITALS: BP 141/61; PULSE 74; RESP 18; TEMP 37; O2SAT 97
[2022-08-09 19:17] VITALS: RESP 16
--- NOTE | 2022-08-09 21:01 | ED.GENADUL_ITS ---
Discharge Plan Disposition Patient Disposition: HOME Condition: Good Discharge Details Clinical Impression: Post surgical numbness Primary Care Provider: Gibran Doshi ED Provider: Aakash Sam Home Meds and New Rx's Prescriptions: No Action buprenorphine-naloxone [Suboxone] 12-3 mg film 1 film Sublingual DAILY Rx Instructions: 8 mg Discharge Instructions Additional Instructions: At this time your exam is reassuring. After our discussion with [facility] they suspect that this is secondary to the block. However it is extremely important that you monitor your symptoms very closely, and watch closely for changing color for your skin, changing sensation, or pain. If you notice that your fingers turn white or blue, return immediately. If you have any of the other concerning symptoms please return immediately for reassessment. Follow-up closely with [facility] orthopedics. If you notice any worsening of your symptoms, or any new symptoms such as vomiting, diarrhea, fever, chills, shortness of breath, chest pain, numbness, weakness, or fainting , please return immediately to the emergency department for reevaluation. Please follow up with your primary care provider as soon as possible for reassessment and reevaluation. As always, it was a pleasure participating in your medical care today. Referrals: Gibran Doshi MD [Primary Care Provider] - Discharge Data Discharge Date/Time-TO BE ENTERED AT DEPARTURE: 08/09/22 21:08 Medical Decision Making This is a pleasant 36-year-old male who is right-hand dominant who presents today for weakness And tingling. About 7 hours prior to evaluation here in the emergency department the patient was at [facility] where he had the SLAP procedure done. Per all accounts, it was successful without complication. He had a nerve block performed at the time of the procedure. When he finished the procedure he states that he was able to move his wrist and fingers well without any complication. He had numbness at that time because of the block. He was subsequently discharged and went home. At about 5 PM patient noticed tingling in his hand, and when he tried to move his hand he noticed that he was completely limp. He was unable to flex or extend the wrist at all, he was unable to move any of his fingers. This is a change, and because of this he came to the ER for further assessment. He denies any pain. He denies any chest pain or shortness of breath. He denies any numbness or tingling anywhere else. No other complaints at this time. No other modifying factors. Exam demonstrates an incision site that is clean dry and intact. Hand demonstrates weakness for flexion of all fingers, with minimal strength in general. Thumb is also weak with diminished strength in extension and opposition. Sensation is intact, including two-point discrimination for all fingers. However the patient definitely has subjective tingling in all of his fingers. Capillary refill is brisk, no signs of an avascular hand whatsoever. Patient is afebrile, vital signs are stable. I suspect that the tingling sensation is secondary to his nerve block wearing off, however the weakness and the changes that the patient noticed is unexpected. We did reach out to [facility], but because of a surgical emergency case that they were in it was about 2 to 3 hours until we were able to get a call back after the patient had arrived. During that time and on reassessment just prior to [facility] calling back the patient demonstrated a significant improvement in his strength. By the end of his stay he was able to move his hand well, had good placement manager strength, good movement of his thumb, good strength with flexion and extension in the hand. We did contact [facility] and I discussed the case with Dr. Arnold of orthopedics. He feels that the changes noted and then his return of symptoms is reflective of the surgical procedure and not a complication. With the patient's notable improvement in symptomatology they do feel that the patient is stable for discharge with close follow-up at the clinic. I had a long discussion with the patient about concerning red flags that would represent compartment syndrome, permanent nerve damage, vascular compromise. Although none of these symptoms are currently present, the patient has been made aware of what to look for in regards to it. He will continue to monitor the symptoms closely and return if the symptoms return or worsen. I have extensively reviewed the treatment plan and discharge instructions with the patient and their family. I have addressed all patient concerns at this time. The patient and family was made aware of what symptoms to monitor for that would warrant a return to the emergency department. Discussed the plan with the patient and family, they demonstrate verbal understanding and agreement with our assessment and plan at this time. The documentation in this chart was dictated using [employer] dictation software. Please excuse any dictation errors. HPI General Date/Time Provider Initiated Documentation: 08/09/22 18:12 . HPI Narrative: This is a pleasant 36-year-old male who is right-hand dominant who presents today for weakness And tingling. About 7 hours prior to evaluation here in the emergency department the patient was at [facility] where he had the SLAP procedure done. Per all accounts, it was successful without complication. He had a nerve block performed at the time of the procedure. When he finished the procedure he states that he was able to move his wrist and fingers well without any complication. He had numbness at that time because of the block. He was subsequently discharged and went home. At about 5 PM patient noticed tingling in his hand, and when he tried to move his hand he noticed that he was completely limp. He was unable to flex or extend the wrist at all, he was unable to move any of his fingers. This is a change, and because of this he came to the ER for further assessment. He denies any pain. He denies any chest pain or shortness of breath. He denies any numbness or tingling anywhere else. No other complaints at this time. No other modifying factors. Related Data Home Medications Medication Instructions Recorded Confirmed buprenorphine 12 mg-naloxone 3 mg 1 film sublingual DAILY 09/03/19 09/01/21 sublingual film (Suboxone) Allergies Allergy/AdvReac Type Severity Reaction Status Date / Time No Known Allergies Allergy Unverified 09/01/21 15:56 General Stated Complaint: Vascular KAITLIN: 3 Review of Systems All systems reviewed & are unremarkable except as noted in HPI and below PFSH All Active Problems Post surgical numbness (Acute) Puncture wound (Acute) ADD (attention deficit disorder) (Chronic) Urinary urgency (Chronic) Medical History Attention deficit hyperactivity disorder Hearing loss Surgical History Arthroscopy (10/02/12) left knee mastoidectomy on the left as a child removal 10/27/98 removal of cholesteatoma left ear canal Family History Mother Personal history of malignant neoplasm Breast Father No problems noted. Sister No problems noted. Social History Smoking/Tobacco Use Status: Current every day Tobacco Type: cigarettes Smoking packs per day: 1 Smoking cigarettes per day: 20.0 Smoking risk assessment performed?: Yes Alcohol Intake: current Alcohol Intake frequency: holidays/special occasions only Drug use: Occasionally Substance use type: former substance user and marijuana Do you feel safe at home: Yes Do you feel safe in your relationship?: Yes Exam Narrative Exam Narrative: 1.Const: Well-nourished, Well-developed, appearing stated age 2.Eyes: PERRL, no conjunctival injection, and symmetrical lids. 3.ENT: Atraumatic external nose and ears. Moist MM. Neck: Symmetric, trachea midline, No thyromegaly. 4.CVS: +S1/S2, No murmurs or gallops. Peripheral pulses 2+ and equal in all extremities. Brisk capillary refill in all extremities. 5.RESP: Unlabored respiratory effort. Clear to auscultation bilaterally. No wheezes rales or rhonchi 6.GI: Soft, Nontender/Nondistended, No hepatosplenomegaly. No guarding or rebound. 7.MSK: Normocephalic/Atraumatic, Extremities w/o deformity. Left upper and bilateral lower extremities are unremarkable. Right upper extremity demonstrates an incision site that is clean dry and intact. No bleeding. No excessive edema. Distal extremity demonstrates notably diminished flexion and extension in the wrist, and minimal strength in the fingers for flexion and extension. Thumb demonstrates the most weakness in extension and opposition . Slightly increased strength in flexion. 8.Skin: Warm, Dry. No rashes or lesions. 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 Sensation is present in all the fingers, including two-point discrimination for the affected hand, as well as the forearm, however the patient definitely has subjective tingling in all of those areas. 10.Psych: (AAO) x3. Appropriate mood and affect Course Vital Signs Vital signs: Vital Signs Temperature 37 C 08/09/22 18:22 Pulse 74 08/09/22 18:22 Respiratory Rate 18 08/09/22 18:22 Blood Pressure 141/61 H 08/09/22 18:22 Pulse Oximetry 97 08/09/22 18:22 Temperature 37 C 08/09/22 18:22 Temperature Source Temporal Artery Scan 08/09/22 18:22 Pulse 74 08/09/22 18:22 Respiratory Rate 18 08/09/22 18:22 Blood Pressure 141/61 H 08/09/22 18:22 Blood Pressure Position Sitting 08/09/22 18:22 Pulse Oximetry 97 08/09/22 18:22 Oxygen Delivery Method Room Air 08/09/22 18:22 Oxygen Flow Rate 0 08/09/22 18:22 Lab/Test Results Lab/Test Results: Laboratory Tests Range/Units 08/09/22 08/09/22 08/09/22 19:13 19:14 19:14 WBC Cancelled RBC Cancelled Hgb Cancelled Hct Cancelled MCV Cancelled MCH Cancelled MCHC Cancelled RDW Cancelled Plt Count Cancelled MPV Cancelled Immature Gran % Cancelled Neutrophils % Cancelled Band Neutrophils % Cancelled Lymphocytes % Cancelled Atypical Lymphs % Cancelled Monocytes % Cancelled Eosinophils % Cancelled Basophils % Cancelled Metamyelocytes % Cancelled Myelocytes % Cancelled Promyelocytes % Cancelled Other Cells % Cancelled Nucleated RBC % Cancelled Absolute Neutrophils Cancelled Absolute Lymphocytes Cancelled Absolute Monocytes Cancelled Absolute Eosinophils Cancelled Absolute Basophils Cancelled RBC Morphology Cancelled Polychromasia Cancelled Hypochromasia Cancelled Poikilocytosis Cancelled Basophilic Stippling Cancelled Anisocytosis Cancelled Microcytosis Cancelled Macrocytosis Cancelled Spherocytes Cancelled Tear Drop Cells Cancelled Ovalocytes Cancelled Stomatocytes Cancelled Turner-Kirkman Bodies Cancelled Silvia Cells/Echinocytes Cancelled Acanthocytes (Spur) Cancelled Schistocytes Cancelled PT INR APTT D-Dimer Cancelled Sodium Cancelled Potassium Cancelled Chloride Cancelled Carbon Dioxide Cancelled Anion Gap Cancelled BUN Cancelled Creatinine Cancelled Est GFR (CKD-EPI 2020) Cancelled Glucose Cancelled Calcium Cancelled Total Bilirubin Cancelled AST Cancelled ALT Cancelled Alkaline Phosphatase Cancelled NT-Pro-B Natriuret Pep Cancelled Total Protein Cancelled Albumin Cancelled Range/Units 08/09/22 19:14 WBC RBC Hgb Hct MCV MCH MCHC RDW Plt Count MPV Immature Gran % Neutrophils % Band Neutrophils % Lymphocytes % Atypical Lymphs % Monocytes % Eosinophils % Basophils % Metamyelocytes % Myelocytes % Promyelocytes % Other Cells % Nucleated RBC % Absolute Neutrophils Absolute Lymphocytes Absolute Monocytes Absolute Eosinophils Absolute Basophils RBC Morphology Polychromasia Hypochromasia Poikilocytosis Basophilic Stippling Anisocytosis Microcytosis Macrocytosis Spherocytes Tear Drop Cells Ovalocytes Stomatocytes Turner-Kirkman Bodies Silvia Cells/Echinocytes Acanthocytes (Spur) Schistocytes PT Cancelled INR Cancelled APTT Cancelled D-Dimer Sodium Potassium Chloride Carbon Dioxide Anion Gap BUN Creatinine Est GFR (CKD-EPI 2020) Glucose Calcium Total Bilirubin AST ALT Alkaline Phosphatase NT-Pro-B Natriuret Pep Total Protein Albumin
== END 2022-08-09 21:08 | disposition home or self-care (01) ==
PROVIDERS: Emergency Provider Student in an Organized Health Care Education/Training Program; PCP Family Medicine
DX: R53.1 Weakness; Z98.890 Other specified postprocedural states; R20.0 Anesthesia of skin; F17.210 Nicotine dependence, cigarettes, uncomplicated
CPT/HCPCS: 80053; 99281; 83880; 85025; 85379; 85610; 85730; 99282

== ENCOUNTER 2024-03-29 06:13 | Day surgery (SDC) | payer MEDICAID, SELFPAY ==
[2024-03-29] VITALS (8 sets, daily range): BP systolic 84–142; BP diastolic 27–90; PULSE 55–73; RESP 16–35; TEMP 35.9–36.6; O2SAT 93–100; BMI 31.5
--- NOTE | 2024-03-29 06:59 | W.ANESPRE ---
General Info Date of Service Date Performed: 03/29/24 Height: 6 ft 4 in Weight: 117.5 kg Body Mass Index (BMI): 31.5 Surgical Procedure: Operation Date: 03/29/24 07:40 Proposed Procedure Side Surgeon p Excision of Scrotal Cysts Buster Silva MD Meds Allergies and Home Medications Allergies Allergy/AdvReac Type Severity Reaction Status Date / Time No Known Allergies Allergy Verified 03/29/24 06:48 Home Medication Medication Instructions Recorded Unknown [No Known Home Meds] 09/22/23 Current Visit Medications: Current Medications Generic Name Dose Route Start Last Admin Trade Name Freq PRN Reason Stop Dose Admin Ringer's Solution 1,000 mls @ 80 mls/hr 03/29/24 06:00 IV 04/27/24 23:59 INFUSION ADILIA Cefazolin Sodium/Dextrose 2 gm in 50 mls @ 100 mls/hr 03/29/24 06:00 Ancef Duplex IVPB 03/29/24 16:00 PREOP ADILIA IV Miscellaneous Supplies 1 each 03/29/24 06:00 Iv Access IV 04/27/24 23:59 DIRECTED ADILIA Sodium Chloride 0 ml 03/29/24 06:00 Normal Saline Flush 10 Ml Syr IV 04/27/24 23:59 PRN PRN Sodium Chloride 0 ml 03/29/24 06:00 Normal Saline 10 Ml Vial IJ 04/27/24 23:59 DIRECTED PRN Sterile Water 0 ml 03/29/24 06:00 Water,Injection,Sterile 10 Ml Vial IJ 04/27/24 23:59 DIRECTED PRN PFSH Active Problems Active Problems: Problem Status Onset Code 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 Sebaceous cyst of scrotum L72.3 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 Otitis externa H60.90 Impacted cerumen of left ear H61.22 Puncture wound T14.8XXA ADD (attention deficit disorder) F98.8 Urinary urgency R39.15 Medical History Medical History SLAP lesion of right shoulder Cholesteatoma of left ear Attention deficit hyperactivity disorder Hearing loss Medical History Comments:: Daily harper Surgical History Surgical History removal 10/27/98 removal of cholesteatoma left ear canal mastoidectomy on the left as a child Arthroscopy (10/02/12) left knee Tobacco Smoking/Tobacco Use Status: Current every day Tobacco Type: cigarettes Smoking packs per day: 1 Alcohol Alcohol Intake: current Alcohol intake frequency: holidays/special occasions only Substance Use Substance use: Daily Substance use type: former substance user and marijuana Vital Signs and Lab Results Vital Signs Most Recent Vital Signs in EMR: Most Recent Vital Signs Temp Pulse Resp BP Pulse Ox 35.9 C L 65 16 142/90 H 99 03/29/24 06:20 03/29/24 06:20 03/29/24 06:20 03/29/24 06:20 03/29/24 06:20 Lab Results Blood Type / Crossmatch: No Data to Display Complete Blood Count: No Data to Display Complete Metabolic Panel: No Data to Display Liver Function Panel: No Data to Display Coagulation Panel: No Data to Display Cardiac Panel: No Data to Display Arterial Blood Gas: No Data to Display Venous Blood Gas: No Data to Display Pancreas Panel: No Data to Display Thyroid Panel: No Data to Display Infectious Disease: No Data to Display Blood Cultures: No Data to Display Toxicology Panel: No Data to Display Anesthesia Assessment and Plan Anesthesia History Personal History: No History of Anesthesia Complications Family History: No Family History of Anesthesia Complications Exercise Tolerance Exercise Tolerance: Metabolic Equivalents>4 Pertinent Negatives Pertinent Negatives: No Major Cardiovascular Symptoms or Complaints and No Major Pulmonary Symptoms or Complaints Cardiac & Pulmonary Exam Cardiac Exam: Normal S1/S2 Heart Sounds Pulmonary Exam: Clear Bilateral Breath Sounds Implantable Cardiac Device Does patient have a Pacemaker or an ICD?: No Airway Exam Known Difficult Airway: No Mallampati Class: 1 Mouth Opening: Normal (> 3cm) Thyromental Distance: Greater than 3 cm Neck Range of Motion: Full ROM Neck Circumference: Normal Teeth Condition: Normal Dentition ASA Classification ASA Score: ASA 2 Emergency Case?: No NPO Status NPO Status: NPO Clears >2 hours, Solids >8 hours Anesthesia Plan Resuscitation Status: Full Code Anesthesia Technique: General Anesthesia Airway Planned: Endotracheal Tube Monitors Used: Standard Monitors
--- NOTE | 2024-03-29 07:12 | W.PM.HP.N ---
Date of service: 03/29/24 Time of Service: 07:12 Assessment and Plan Assessment and plan (1) Sebaceous cyst of scrotum: Status: Acute Assessment and plan: For excision of cysts History of Present Illness History of Present Illness Chief Complaint: Scrotal cysts Narrative: This is a 38-year-old gentleman who comes in for excision of multiple scrotal cysts He tells me that about 4 years ago, he had a single scrotal cyst that was either removed or drained in the PCPs office. Since that time, the original cyst seem to recur and additional cysts have developed. The masses are not especially painful but do rub against his undergarments and cause irritation. He has not seen any drainage or bleeding from the areas. He has not noticed any overlying skin redness. He has no known bleeding disorders. He has never had issues with anesthesia in the past. Review of Systems Narrative: No fevers or chills No vision change or dysphasia No diabetes or thyroid No shortness of breath, cough or hemoptysis No chest pain or palpitations GERD. No hepatitis, ulcers, jaundice, diarrhea or constipation No seizures, strokes or peripheral neuropathy No bleeding disorders or anemia No gout PFSH All Active Problems Cholesteatoma of left middle ear (Acute) Sebaceous cyst of scrotum (Acute) Infection of left mastoid bowl (Acute) Otitis externa (Acute) Impacted cerumen of left ear (Acute) Puncture wound (Acute) ADD (attention deficit disorder) (Chronic) Urinary urgency (Chronic) Medical History SLAP lesion of right shoulder Cholesteatoma of left ear Attention deficit hyperactivity disorder Hearing loss Surgical History removal 10/27/98 removal of cholesteatoma left ear canal mastoidectomy on the left as a child Arthroscopy (10/02/12) left knee Family History Mother Personal history of malignant neoplasm Breast Father No problems noted. Sister No problems noted. Social History Smoking/Tobacco Use Status: Current every day Tobacco Type: cigarettes Smoking packs per day: 1 Smoking cigarettes per day: 20.0 Smoking risk assessment performed?: Yes Alcohol Intake: current Alcohol Intake frequency: holidays/special occasions only Drug use: Daily Substance use type: former substance user and marijuana Housing: apartment Do you feel safe at home: Yes Additional Social history: unable to assess privately Meds Allergies and Home Medications Allergies Allergy/AdvReac Type Severity Reaction Status Date / Time No Known Allergies Allergy Verified 03/29/24 06:48 Home Medications Medication Instructions Recorded Confirmed Type Unknown [No Known Home Meds] 09/22/23 03/28/24 History Exam Const General: cooperative Neck Neck: supple Resp Effort & Inspection: normal respiratory effort Auscultation: clear to auscultation bilaterally Cardio Rate: regular rate Rhythm: regular rhythm GI Palpation: soft and no masses Scrotum: scrotal mass (multiple sebaceous cysts) Neuro General: patient alert, patient awake and patient oriented x3 Results Last Vital Signs Temp 35.9 C L 03/29/24 06:20 Pulse 65 03/29/24 06:20 Resp 16 03/29/24 06:20 BP 142/90 H 03/29/24 06:20 Pulse Ox 99 03/29/24 06:20 Time Spent Time spent with Patient: <40 minutes Time was spent: other
[2024-03-29] MEDS: Lactated Ringers 1,000 ML 80 ML IV (07:17)
[2024-03-29] MEDS: ceFAZolin 2 GM/50 ML BAG IVPB (07:39)
--- NOTE | 2024-03-29 08:04 | SKI_PTH ---
PATIENT: Jet Mcclain LOC: [facility] U#:[id number] AGE/SX: 38/M ROOM: RE03/29/[address]: Buster Silva MD : 1985 BED: DIS: 03/29/2024 SPEC #: [id number] RECD: 03/29/24 12:09 STATUS: FANTASMA RO #: [id number] ALEX: 03/29/24 08:[address]: Buster Silva DEPT: Surgical Specimen RECD BY: Bhavya Torres ENTERED: 03/29/24 12:11 SP TYPE: MONI BARLILAS DR: Keith Suazo Tissues: 1 - SKIN CYST/TAG/DEBRIDEMENT Procedures: GROSS AND MICRO LEVEL 3 Comments: [id number]
[2024-03-29] MEDS: Lidocaine 1% Multi-Dose W/EPI 1/100,000 50 ML VIAL (08:16)
--- NOTE | 2024-03-29 08:31 | W.PM.DSUDISC ---
Date of service: 03/29/24 Time of Service: 08:31 Discharge Plan Disposition Patient Disposition: Home Condition: Stable Discharge Details Reason For Visit: Scrotal cyst removal Attending Provider: Buster Silva Primary Care Provider: Keith Suazo Home Meds and New Rx's Prescriptions: New tramadol 50 mg tablet 50 mg PO Q6H PRN (Reason: pain) Qty: 12 0RF Rx Instructions: may take for breakthrough pain if tylenol/NSAIDs are not helpful Discharge Instructions Additional Instructions: OK to shower and remove dressings 03/30/2024 Followup 2 to 3 weeks for wound check and pathology reports Activity:: no straining or lifting over 10 pounds for @ 1 week Remove Dressings/Wound Care:: 24 hours Shower/Bathe:: 24 hours Diet:: As Tolerated Discharge Orders Discharge Orders: Discharge Order (Routine); Ordered 03/29/24 Ordered By: Buster Silva DS: Diagnosis Discharge Diagnosis (1) Sebaceous cyst of scrotum: Status: Acute
--- NOTE | 2024-03-29 08:42 | ROE_ITS ---
Date of service: 03/29/24 Time of Service: 08:42 Operative Note Operative Note DATE OF PROCEDURE: 03/29/24 PRE-OP DIAGNOSIS: Scrotal cysts POST-OP DIAGNOSIS: same PROCEDURE: Excision of scrotal cysts SURGEON: Buster Silva ANESTHESIA TYPE: Local By Surgeon and General LMA/ETT Refer to Anesthesia Record ESTIMATED BLOOD LOSS: 5 PATHOLOGY: other (scrotal cysts) COMPLICATIONS: None Patient was transported to: PACU Patient's condition: stable Indications: This is a 38-year-old gentleman who has a history of masses on the scrotum. At times, they have been irritating as they rub against underclothing. On 1 occasion, one of the areas drained and scarred over. As they are symptomatic for him, he comes in for excision of the masses Findings: Multiple small masses that clinically appear to be sebaceous cysts Procedure Description: The patient was brought to the operating room on 03/29/2024. He was given preoperative antibiotics. After successful induction of general anesthesia, he was placed in the supine position. His genitalia and perineum were prepped and draped. The scrotum was inspected and there were multiple subepithelial masses that appeared to be sebaceous cysts. These lesions were in a linear formation along the anterior scrotum. More posteriorly, toward the scrotal midline, there were 2 smaller flesh-colored lesions. We utilized local anesthetic with 1% lidocaine with epinephrine to perform field block surrounding each of the lesion sites. The 2 smaller lesions were excised sharply. The 2 lesions were sent to pathology for permanent section. The excision site was cauterized with the Bovie and the skin was closed with Dermabond. The more anterior linear arranged lesions were all excised and the 1. We did an elliptical incision that incorporated each of these lesions. The lesions were likewise sent to pathology for permanent section. The excision site was cauterized with Bovie and hemostasis appeared excellent. The wound was closed in 2 layers with a first segment of running 4-0 Vicryl followed by a s ubcuticular 4-0 Vicryl suture as well. This incision was likewise treated with Dermabond. A fluff dressing was applied followed by a scrotal support. The patient tolerated this procedure well with no complications.
--- NOTE | 2024-03-29 11:14 | W.ANESPOSTOP ---
Postoperative Evaluation Date, Time and Location Date Performed: 03/29/24 Time Performed: 10:10 Patient Location: Day Surgery Unit Vital Signs Most Recent Imported Vital Signs: Most Recent Vital Signs Temp Pulse Resp BP Pulse Ox 36.3 C L 60 16 121/75 98 03/29/24 10:00 03/29/24 10:00 03/29/24 10:00 03/29/24 10:00 03/29/24 10:00 Pain Score Most Recent Pain Score: Most Recent Pain Score Pain Level 0 03/29/24 10:00 Assessment Mental Status: Awake (Alert & Oriented to Patient Baseline) Airway and Respiratory Function: Patent airway with normal (patient baseline) respiratory exam Cardiovascular Function: Hemodynamically Stable Hydration Status: Adequately Hydrated Nausea & Vomiting: No Nausea or Vomiting Pain: Pt. Denies Any Pain Peripheral Nerve Block: Patient did not receive a nerve block
== END 2024-03-29 10:30 | disposition home or self-care (01) ==
PROVIDERS: PCP Dentist General Practice; Visit Provider Urology
PROC: (CPT 11420; principal; 2024-03-29 07:30)
DX: L72.3 Sebaceous cyst (principal); N50.89 Other specified disorders of the male genital organs
CPT/HCPCS: 11420 ×2; 11421; 88304; J0330; J0690; J1100; J1885; J2001; J2004; J2250; J2405; J2704

== ENCOUNTER 2024-09-17 09:43 | Emergency (ER) | payer SELFPAY ==
[2024-09-17 10:01] VITALS: BP 119/87; PULSE 80; RESP 16; TEMP 36.4; O2SAT 98
--- NOTE | 2024-09-17 10:38 | ED.GENADUL_ITS ---
Discharge Plan Disposition Patient Disposition: Home Condition: Stable Discharge Details Clinical Impression: Photokeratitis of both eyes Primary Care Provider: Keith Suazo ED Provider: [place] Home Meds and New Rx's Prescriptions: No Action No Known Home Meds Discharge Instructions Instructions: Erythromycin (Ophthalmic), Photokeratitis (arc eye) Additional Instructions: Please use erythromycin eye ointment as follows: Apply 0.5 inch ribbon to both eyes 4 times a day for the next 3 days. Please take ibuprofen over the counter. Take 600mg by mouth every 6 hours as needed for pain. Please take acetaminophen (tylenol) - 650mg every 6 hours by mouth as needed for pain. 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 Call today to schedule follow-up appointment. Return to the ER immediately for any worsening or new concerning symptoms. Stand Alone Forms: Work Release Referrals: Count Includes [facility] [Outside] [facility] General Mode of arrival: ambulatory . Date/Time Provider Initiated Documentation: 09/17/24 10:38 . Limitations to Documentation: no limitations . Information obtained by: patient . HPI Narrative: 38-year-old male presents with bilateral eye pain. 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 Pain is worse in his left eye. He has photophobia and some blurred vision bilaterally. Related Data Home Medications ?Medication ?Instructions ?Recorded ?Confirmed Unknown [No Known Home Meds] 09/17/24 09/17/24 Allergies Allergy/AdvReac Type Severity Reaction Status Date / Time No Known Allergies Allergy Verified 09/17/24 10:05 General Stated Complaint: EyeProblem KAITLIN: 4 Review of Systems Eyes Eyes: Reports as per HPI Exam Eyes Visual Andino: normal visual andino by confrontation Alignment and Position: alignment normal Periorbital: periorbital findings normal Eyelids: eyelids normal Sclera: sclerae normal Cornea: corneas abnormal bilaterally (Few areas of punctate uptake left greater than right) and fluorescein used Pupils: anisocoria (Right pupil 4 mm, left 3 mm) EOM: EOM intact bilaterally Direct ophthalmoscopy: no papilledema and photophobia Course Vital Signs Vital signs: Vital Signs Temperature 36.4 C 09/17/24 10:01 Pulse 80 09/17/24 10:01 Respiratory Rate 16 09/17/24 10:01 Blood Pressure 119/87 09/17/24 10:01 Pulse Oximetry 98 09/17/24 10:01 Temperature 36.4 C 09/17/24 10:01 Pulse 80 09/17/24 10:01 Respiratory Rate 16 09/17/24 10:01 Respiratory Effort Normal 09/17/24 10:06 Blood Pressure 119/87 09/17/24 10:01 Pulse Oximetry 98 09/17/24 10:01 Pain Level 7 09/17/24 10:01 Medical Decision Making 38-year-old male here with bilateral photophobia, eye pain and blurred vision after welding yesterday. Patient was treated with topical Xylocaine and had near complete resolution of discomfort. Fluorescein stain under [place] lamp reveals fine punctate uptake. Suspect photokeratitis. I will initiate treatment with erythromycin ointment, ibuprofen and Tylenol. Plan for outpatient follow-up with ophthalmology. Usual customary discharge instructions were reviewed with the patient. Quality:SDOH Health Related Social Needs: No Data to Display PFSH All Active Problems Photokeratitis of both eyes (Acute) Cholesteatoma of left middle ear (Acute) Sebaceous cyst of scrotum (Acute) Infection of left mastoid bowl (Acute) Otitis externa (Acute) Impacted cerumen of left ear (Acute) Puncture wound (Acute) ADD (attention deficit disorder) (Chronic) Urinary urgency (Chronic) Medical History SLAP lesion of right shoulder Cholesteatoma of left ear Attention deficit hyperactivity disorder Hearing loss Surgical History removal 10/27/98 removal of cholesteatoma left ear canal mastoidectomy on the left as a child Arthroscopy (10/02/12) left knee Family History Mother Personal history of malignant neoplasm Breast Father No problems noted. Sister No problems noted. Social History Smoking/Tobacco Use Status: Current every day Tobacco Type: cigarettes Smoking packs per day: 1 Smoking cigarettes per day: 20.0 Smoking risk assessment performed?: Yes Alcohol Intake: current Alcohol Intake frequency: holidays/special occasions only Drug use: Daily Substance use type: former substance user and marijuana Housing: apartment Do you feel safe at home: Yes Additional Social history: unable to assess privately
[2024-09-17] MEDS: Ibuprofen 600 MG TAB PO (10:53)
[2024-09-17] MEDS: Acetaminophen 325 MG TAB 650 MG PO (10:53)
[2024-09-17] MEDS: Fluorescein STRIPS 100/BOX 1 MG (10:53)
[2024-09-17] MEDS: Tetracaine 0.5% 4 ML BTL (10:54)
[2024-09-17] MEDS: Erythromycin Ophth Oint 3.5 GM TUBE OU (10:54)
== END 2024-09-17 11:01 | disposition home or self-care (01) ==
PROVIDERS: Emergency Provider Student in an Organized Health Care Education/Training Program; PCP Dentist General Practice
DX: H16.133 Photokeratitis, bilateral (principal)
CPT/HCPCS: 99283; 99284

== ENCOUNTER 2025-11-14 11:33 | Emergency (ER) | payer SELFPAY ==
[2025-11-14] VITALS (13 sets, daily range): BP systolic 102–153; BP diastolic 52–97; PULSE 55–75; RESP 17–23; TEMP 36.8–37; O2SAT 93–98
--- NOTE | 2025-11-14 12:15 | RT.EKG_ITS ---
APPROVED REPORT Exam: Resting ECG Reason for Exam: ams Patient Location: E HR:56 bpm ECG Measurements Heart Rate 56 AXIS AK 174 P 43 QRSd 86 QRS 34 QT 393 T 0 QTc 380 Conclusion Sinus bradycardia...rate< 60 No Occlusion [place]
--- NOTE | 2025-11-14 12:15 | DI.CT_ITS ---
Exam(s) CT BRAIN NECK CTA EXAM: CT BRAIN NECK CTA CLINICAL HISTORY: left neck pain with facial droop,. TECHNIQUE: Imaging Protocol: Axial CT angiography was performed with multi- slice acquisition and multi-planar and MIP reconstructions. CONTRAST MATERIAL: Intravenous: Omnipaque 350 Contrast volume:70 ml COMPARISON: No exams were available for comparison FINDINGS: CT Head W/O and W contrast: Ventricles and Extra axial spaces: Normal in size and morphology for the patient's age. Hemorrhage: None. Cerebral parenchyma: No evidence of acute infarct or mass. Midline shift: None. Brainstem/Cerebellum: No acute findings.. Calvarium: Normal. Visualized Paranasal sinuses/Mastoids: Clear. Soft Tissues: Unremarkable. Enhancement: Normal. Venous sinuses are patent. CTA Brain W: Internal Carotid Arteries: Right: No aneurysm, occlusion or significant stenosis. Left: No aneurysm, occlusion or significant stenosis. Middle Cerebral Arteries: Right: No aneurysm, occlusion or significant stenosis. Left: No aneurysm, occlusion or significant stenosis. Anterior Cerebral Arteries: Right: No aneurysm, occlusion or significant stenosis. Left: No aneurysm, occlusion or significant stenosis. Posterior cerebral Arteries: Right: No aneurysm, occlusion or significant stenosis. Left: No aneurysm, occlusion or significant stenosis. Vertebral Arteries: Right: No aneurysm, occlusion or significant stenosis. Left: No aneurysm, occlusion or significant stenosis. Basilar Artery: No aneurysm, occlusion or significant stenosis. CTA Neck W: No atherosclerotic changes. Visualized aorta: Unremarkable. Visualized pulmonary arteries: Unremarkable. Subclavian arteries: Unremarkable. Common Carotid: Right: No dissection, occlusion or significant stenosis. Left: No dissection, occlusion or significant stenosis. External Carotid: Right: No dissection, occlusion or significant stenosis. Left: No dissection, occlusion or significant stenosis. Internal Carotid: Right: No dissection, occlusion or significant stenosis. Left: No dissection, occlusion or significant stenosis. Vertebral Artery: Right: No dissection, occlusion or significant stenosis. Left: No dissection, occlusion or significant stenosis. Lung Apices: No acute findings. Bones: No acute abnormality. Soft Tissues: Normal. IMPRESSION: 1. CTA brain: Normal CTA examination of the [place]. 2. Head CT: No acute abnormality. 3. CTA neck: No evidence of occlusion, significant stenosis or dissection. RADIATION DOSE DELIVERED: Total DLP DATA REPOSITORY: All CT scans at this facility are submitted to the National Radiology Data Registry (NRDR) Dose Index Registry (DIR) with the [employer] (ACR). RADIATION OPTIMIZATION: All CT scans at this facility use at least one of these dose optimization techniques: automated exposure control; mA and/or kV adjustment per patient size (includes targeted exams where dose is matched to clinical indication); or iterative reconstruction.
[2025-11-14] MEDS: Normal Saline - Diluent 50 ML VIAL IJ (13:29)
[2025-11-14] MEDS: Omnipaque 350 MG/ML 100 ML BTL IJ (13:29)
[2025-11-14 13:38] LABS: HCT 41.2 % (40.0-50.0); HGB 14.2 g/dL (13.5-17.5); MCH 30.1 pg (27.0-33.0); MCHC 34.5 % (32.0-36.0); MCV 88 fL (80-95); MPV 9.2 fL (8.0-11.0); Platelet Count 293 10^3/uL (130-400); RBC 4.71 10^6/uL (4.36-5.78); RDW 12.8 % (11.8-14.1); RDW-SD 40.5 fL; WBC 10.81 10^3/uL (4.4-10.8)
[2025-11-14 13:39] LABS: Abs Immature Grans 0.03 10^3/uL (0.0-0.06); Immature Grans % 0.3 %
--- NOTE | 2025-11-14 14:00 | W.ED.GENAD ---
Discharge Plan Disposition Patient Disposition: Home Condition: Stable Discharge Details Clinical Impression: Harrison's palsy Primary Care Provider: Keith Suazo ED Provider: Aakash Guaman Home Meds and New Rx's Prescriptions: New prednisone 10 mg tablet 10 mg PO DIRECTED Qty: 15 0RF Rx Instructions: see taper instructions take 50 mg day 6, 40 mg day 7, 30 mg day 8, 20 mg day 9, 10 mg day 10 prednisone 20 mg tablet 60 mg PO DAILY Qty: 15 0RF valacyclovir [Valtrex] 1 gram tablet 1,000 mg PO TID Qty: 21 0RF Discharge Instructions Instructions: Harrison's palsy, Harrison's Palsy Exercises Additional Instructions: Take medications as prescribed I will hold on doxycycline until your tick panel returns Recommend using artificial tears in your eye that is affected and you may carefully tape your eye shut at night if it is not closing completely so it does not become dry Please schedule follow-up with your primary care physician for recheck next week Your tests are reassuring including MRI of your brain and CAT scan If your issue does not resolve with medications and your tick panel is negative, you may need follow-up with ENT/Neurology regarding your past history of cholesteatoma and failure to improve of your Harrison's palsy Stand Alone Forms: Portal Information Referrals: Keith Suazo [Primary Care Provider, Medicine] Discharge Data Discharge Date/Time-TO BE ENTERED AT DEPARTURE: 11/14/25 17:08 HPI General Date/Time Provider Initiated Documentation: 11/14/25 12:06. HPI Narrative: This 39-year-old male presents with 4 to 5 days of sharp pain in his neck followed by facial droop on the left. Patient's had mild intermittent headaches denies any vision change or strength or sensation changes distally. States he has had some intermittent slurred speech and is having difficulty swallowing secondary to lack of facial muscle control. He does smoke tobacco denies illicit substance he denies any chest pain denies any dizziness or trauma to his neck. Denies any additional complaints at this time. Denies history of hyperlipidemia or hypertension. Denies any cocaine use. Denies early CVA or cardiac disease in family members or self Related Data Home Medications ?Medication ?Instructions ?Recorded ?Confirmed prednisone 10 mg tablet 10 mg PO DIRECTED #15 tabs 11/14/25 prednisone 20 mg tablet 60 mg (3 x 20 mg) PO DAILY #15 tabs 12/18/25 valacyclovir 1 gram tablet 1,000 mg PO TID #21 tabs 11/14/25 (Valtrex) Previous Rx's ?Medication ?Instructions ?Recorded prednisone 10 mg tablet 10 mg PO DIRECTED #15 tabs 11/14/25 prednisone 20 mg tablet 60 mg (3 x 20 mg) PO DAILY #15 tabs 11/14/25 valacyclovir 1 gram tablet 1,000 mg PO TID #21 tabs 11/14/25 (Valtrex) Allergies Allergy/AdvReac Type Severity Reaction Status Date / Time No Known Allergies Allergy Verified 11/14/25 11:44 General Stated Complaint: Nk/Back Pain KAITLIN: 3 Exam Narrative Exam Narrative: Left facial droop appreciated, mild movement of upper eyebrow on left oropharynx patent uvula midline able to close left eyelid sensation mildly diminished to right cheek, extraocular muscles intact, pupils equal round reactive to light and accommodation no carotid bruit phonation intact negative [id number] negative heel winn, ambulatory with steady gait Course Vital Signs Vital signs: Vital Signs Temperature 37 C 11/14/25 11:39 Pulse 75 11/14/25 11:39 Respiratory Rate 18 11/14/25 11:39 Blood Pressure 136/81 11/14/25 11:39 Pulse Oximetry 93 11/14/25 11:39 Temperature 37 C 11/14/25 11:39 Temperature Source Temporal Artery Scan 11/14/25 11:39 Pulse 75 11/14/25 11:39 Respiratory Rate 18 11/14/25 11:39 Blood Pressure 136/81 11/14/25 11:39 Blood Pressure Position Sitting 11/14/25 11:39 Pulse Oximetry 93 11/14/25 11:39 Oxygen Delivery Method Room Air 11/14/25 11:39 Oxygen Flow Rate 0 11/14/25 11:39 Pain Level 5 11/14/25 11:39 Lab/Test Results Lab/Test Results: Laboratory Tests Range/Units 11/14/25 12:34 WBC (4.4-10.8) 10^3/uL 10.81 H RBC (4.36-5.78) 10^6/uL 4.71 Hgb (13.5-17.5) g/dL 14.2 Hct (40.0-50.0) % 41.2 MCV (80-95) fL 88 MCH (27.0-33.0) pg 30.1 MCHC (32.0-36.0) % 34.5 RDW (11.8-14.1) % 12.8 Plt Count (130-400) 10^3/uL 293 MPV (8.0-11.0) fL 9.2 Immature Gran % % 0.3 Neutrophils % % 67.0 Lymphocytes % % 26.0 Monocytes % % 5.5 Eosinophils % % 1.0 Basophils % % 0.2 Absolute Neutrophils (1.2-6.7) 10^3/uL 7.25 H Absolute Lymphocytes (1.2-3.4) 10^3/uL 2.81 Absolute Monocytes (0.1-0.8) 10^3/uL 0.59 Absolute Eosinophils (0.0-0.7) 10^3/uL 0.11 Absolute Basophils (0.0-0.2) 10^3/uL 0.02 Troponin I Cancelled Medical Decision Making Results: CTA head and neck does not show evidence of acute abnormality, CBC, CMP, EKG reassuring including urinalysis, tick panel pending Assessment and plan: Patient presenting with slightly atypical presentation of likely Harrison's palsy but still with some movement to left eyebrow, oropharynx is patent, uvula midline, flattening of the nasolabial fold. CTA is reassuring without evidence of acute stroke, for complete completeness I will order MRI. Patiently placed on prednisone and Valtrex should MRI be negative which I suspect this is likely going to be peripheral in nature. Patient will need close outpatient follow-up with his primary care physician. I will not treat for tickborne illness as patient denies any recent tick bites and tick panel is pending at this time. Care will be transitioned to Dipak Guaman pending MRI. PFSH All Active Problems (Updated 11/14/25 @ 15:28 by DEJAN Patricia) Harrison's palsy (Acute) Cholesteatoma of left middle ear (Acute) Sebaceous cyst of scrotum (Acute) Infection of left mastoid bowl (Acute) Otitis externa (Acute) Impacted cerumen of left ear (Acute) Puncture wound (Acute) ADD (attention deficit disorder) (Chronic) Urinary urgency (Chronic) Medical History SLAP lesion of right shoulder Cholesteatoma of left ear Attention deficit hyperactivity disorder Hearing loss Surgical History removal 10/27/98 removal of cholesteatoma left ear canal mastoidectomy on the left as a child Arthroscopy (10/02/12) left knee Family History Mother Personal history of malignant neoplasm Breast Father No problems noted. Sister No problems noted. Social History Smoking/Tobacco Use Status: Current every day Tobacco Type: cigarettes Smoking packs per day: 1 Smoking cigarettes per day: 20.0 Smoking risk assessment performed?: Yes Alcohol Intake: current Alcohol Intake frequency: a few times a month Drug use: Daily Substance use type: former substance user and marijuana Housing: apartment Do you feel safe at home: Yes Additional Social history: unable to assess privately
[2025-11-14 15:35] LABS: Troponin I < 3 ng/L (<54)
--- NOTE | 2025-11-14 15:45 | DI.MRI_ITS ---
Exam(s) MR BRAIN WO EXAM: MR BRAIN WO CLINICAL HISTORY: left facial droop with slurred speech TECHNIQUE: Multiplanar multisequence MRI of the brain was performed. COMPARISON: CT CT BRAIN NECK CTA from 11/14/2025 FINDINGS: VENTRICLES AND EXTRA AXIAL SPACES: Normal in size and morphology for the patient's age. MIDLINE SHIFT: None. CEREBRAL PARENCHYMA: No focus of restricted diffusion to suggest acute infarct. No space-occupying lesion identified. There are no abnormal high signal lesions in the white matter. BRAINSTEM/CEREBELLUM: Normal. VISUALIZED PARANASAL SINUSES: Clear. MASTOIDS:Clear. Vasculature: Normal flow void. PITUITARY GLAND: Unremarkable. ORBITS: Unremarkable. IMPRESSION: Unremarkable MRI of the brain. DATA REPOSITORY:
[2025-11-14 16:41] LABS: Troponin I < 3 ng/L (<54)
[2025-11-14 16:48] LABS: Potassium 3.9 mmol/L (3.5-5.1); Sodium 145 mmol/L (136-145)
[2025-11-14 16:49] LABS: Albumin 4.4 g/dL (3.2-5.0); Alkaline Phosphatase 87 U/L (46-116); Anion Gap 8.5 mmol/L (3-11); BUN 15 mg/dL (9-23); Bilirubin, Total 0.6 mg/dL (0.2-1.2); CO2 27.5 mmol/L (20.0-31.0); Calcium 9.2 mg/dL (8.3-10.6); Chloride 109 mmol/L (98-107); Glucose 107 mg/dL (74-106); Total Protein 7.4 g/dL (5.7-8.2)
[2025-11-14 16:50] LABS: ALT 29 U/L (10-49); AST 28 U/L (<34); Magnesium 2.0 mg/dL (1.6-2.6); Troponin I < 3 ng/L (<54)
--- NOTE | 2025-11-14 16:51 | ED.PROG_ITS ---
Date of service: 11/14/25 Time of Service: 16:51 Medical Decision Making This dictation utilizes [id number] dictation software and may contain unedited grammatical errors. Patient seen in signout from Bhavya De Oliveira PA-C, please see her note. Essentially this 39-year-old male has had 4 to 5 days of sharp pain in his left neck thought he slept on it wrong and then he noticed a facial palsy on the left side, CTA is negative, we are awaiting MRI but he is written for discharge for Harrison's palsy with prednisone and Valtrex, tick panel is pending. Patients' medical history: Cholesteatoma of left middle ear. Family and social history: Noncontributory. Differential / pathologies of concern include Harrison's palsy, Lyme disease, complication from prior cholesteatoma. Diagnostic studies of: - Reviewed pending MRI which is negative, reasonable to discharge home. Interventions of: - None after signout, prescriptions were already sent. - Confirmed there is no vesicular lesions in or around his ear or auricle, vision grossly intact. ED Course/Assessment/Plan: 39-year-old male presents with Harrison's palsy for the past 2 days after some neck pain 4 to 5 days ago, CTA was negative MRI is negative which was pending at time of signout, prescriptions for prednisone and valacyclovir have already been se nt, tick panel is pending, counseled the patient's open will call him tomorrow should his Lyme disease test positive and add on doxycycline, recommend strict return criteria for any severe acute worsening and possible follow-up with ENT versus neurology for any failure to improve for further imaging studies. Patient was comfortable with this plan. Findings not consistent with stroke, Selvin Whyte syndrome. Disposition of Harrison's Palsy. Patient verbalized understanding of the plan and return to ED criteria and engaged in shared decision making. Medical Records Medical records reviewed: Yes I reviewed the patient's medical records. Imaging Data Radiologic Study: Attestation: I personally reviewed and interpreted this imaging study as follows: Imaging: MRI Radiologist's impression: EXAM: MR BRAIN WO CLINICAL HISTORY: left facial droop with slurred speech TECHNIQUE: Multiplanar multisequence MRI of the brain was performed. COMPARISON: CT CT BRAIN NECK CTA from 11/14/2025 FINDINGS: VENTRICLES AND EXTRA AXIAL SPACES: Normal in size and morphology for the patient's age. MIDLINE SHIFT: None. CEREBRAL PARENCHYMA: No focus of restricted diffusion to suggest acute infarct. No space-occupying lesion identified. There are no abnormal high signal lesions in the white matter. BRAINSTEM/CEREBELLUM: Normal. VISUALIZED PARANASAL SINUSES: Clear. MASTOIDS:Clear. Vasculature: Normal flow void. PITUITARY GLAND: Unremarkable. ORBITS: Unremarkable. IMPRESSION: Unremarkable MRI of the brain. Radiologic Study #2: Attestation: I personally reviewed and interpreted this imaging study as follows: Imaging: CT Scan Radiologist's impression: EXAM: CT BRAIN NECK CTA CLINICAL HISTORY: left neck pain with facial droop,. TECHNIQUE: Imaging Protocol: Axial CT angiography was performed with multi- slice acquisition and multi-planar and MIP reconstructions. CONTRAST MATERIAL: Intravenous: Omnipaque 350 Contrast volume:70 ml COMPARISON: No exams were available for comparison FINDINGS: CT Head W/O and W contrast: Ventricles and Extra axial spaces: Normal in size and morphology for the patient's age. Hemorrhage: None. Cerebral parenchyma: No evidence of acute infarct or mass. Midline shift: None. Brainstem/Cerebellum: No acute findings.. Calvarium: Normal. Visualized Paranasal sinuses/Mastoids: Clear. Soft Tissues: Unremarkable. Enhancement: Normal. Venous sinuses are patent. CTA Brain W: Internal Carotid Arteries: Right: No aneurysm, occlusion or significant stenosis. Left: No aneurysm, occlusion or significant stenosis. Middle Cerebral Arteries: Right: No aneurysm, occlusion or significant stenosis. Left: No aneurysm, occlusion or significant stenosis. Anterior Cerebral Arteries: Right: No aneurysm, occlusion or significant stenosis. Left: No aneurysm, occlusion or significant stenosis. Posterior cerebral Arteries: Right: No aneurysm, occlusion or significant stenosis. Left: No aneurysm, occlusion or significant stenosis. Vertebral Arteries: Right: No aneurysm, occlusion or significant stenosis. Left: No aneurysm, occlusion or significant stenosis. Basilar Artery: No aneurysm, occlusion or significant stenosis. CTA Neck W: No atherosclerotic changes. Visualized aorta: Unremarkable. Visualized pulmonary arteries: Unremarkable. Subclavian arteries: Unremarkable. Common Carotid: Right: No dissection, occlusion or significant stenosis. Left: No dissection, occlusion or significant stenosis. External Carotid: Right: No dissection, occlusion or significant stenosis. Left: No dissection, occlusion or significant stenosis. Internal Carotid: Right: No dissection, occlusion or significant stenosis. Left: No dissection, occlusion or significant stenosis. Vertebral Artery: Right: No dissection, occlusion or significant stenosis. Left: No dissection, occlusion or significant stenosis. Lung Apices: No acute findings. Bones: No acute abnormality. Soft Tissues: Normal. IMPRESSION: 1. CTA brain: Normal CTA examination of the [place]. 2. Head CT: No acute abnormality. 3. CTA neck: No evidence of occlusion, significant stenosis or dissection. Lab Data Lab results reviewed: Yes I reviewed the patient's lab results. Labs: Laboratory Tests Range/Units 11/14/25 11/14/25 11/14/25 12:34 12:34 14:09 WBC (4.4-10.8) 10^3/uL 10.81 H RBC (4.36-5.78) 10^6/uL 4.71 Hgb (13.5-17.5) g/dL 14.2 Hct (40.0-50.0) % 41.2 MCV (80-95) fL 88 MCH (27.0-33.0) pg 30.1 MCHC (32.0-36.0) % 34.5 RDW (11.8-14.1) % 12.8 Plt Count (130-400) 10^3/uL 293 MPV (8.0-11.0) fL 9.2 Immature Gran % % 0.3 Neutrophils % % 67.0 Lymphocytes % % 26.0 Monocytes % % 5.5 Eosinophils % % 1.0 Basophils % % 0.2 Absolute Neutrophils (1.2-6.7) 10^3/uL 7.25 H Absolute Lymphocytes (1.2-3.4) 10^3/uL 2.81 Absolute Monocytes (0.1-0.8) 10^3/uL 0.59 Absolute Eosinophils (0.0-0.7) 10^3/uL 0.11 Absolute Basophils (0.0-0.2) 10^3/uL 0.02 Sodium (136-145) mmol/L 145 Potassium (3.5-5.1) mmol/L 3.9 Chloride (98-107) mmol/L 109 H Carbon Dioxide (20.0-31.0) mmol/L 27.5 Anion Gap (3-11) mmol/L 8.5 BUN (9-23) mg/dL 15 Creatinine (0.73-1.18) mg/dL 0.83 Est GFR (CKD-EPI 2020) (mL/min/1.73m2) 114.17 Glucose (74-106) mg/dL 107 H Calcium (8.3-10.6) mg/dL 9.2 Magnesium (1.6-2.6) mg/dL 2.0 Total Bilirubin (0.2-1.2) mg/dL 0.6 AST (<34) U/L 28 ALT (10-49) U/L 29 Alkaline Phosphatase (46-116) U/L 87 Troponin I (<54) ng/L < 3 Cancelled < 3 Total Protein (5.7-8.2) g/dL 7.4 Albumin (3.2-5.0) g/dL 4.4 Range/Units 11/14/25 15:58 WBC (4.4-10.8) 10^3/uL RBC (4.36-5.78) 10^6/uL Hgb (13.5-17.5) g/dL Hct (40.0-50.0) % MCV (80-95) fL MCH (27.0-33.0) pg MCHC (32.0-36.0) % RDW (11.8-14.1) % Plt Count (130-400) 10^3/uL MPV (8.0-11.0) fL Immature Gran % % Neutrophils % % Lymphocytes % % Monocytes % % Eosinophils % % Basophils % % Absolute Neutrophils (1.2-6.7) 10^3/uL Absolute Lymphocytes (1.2-3.4) 10^3/uL Absolute Monocytes (0.1-0.8) 10^3/uL Absolute Eosinophils (0.0-0.7) 10^3/uL Absolute Basophils (0.0-0.2) 10^3/uL Sodium (136-145) mmol/L Potassium (3.5-5.1) mmol/L Chloride (98-107) mmol/L Carbon Dioxide (20.0-31.0) mmol/L Anion Gap (3-11) mmol/L BUN (9-23) mg/dL Creatinine (0.73-1.18) mg/dL Est GFR (CKD-EPI 2020) (mL/min/1.73m2) Glucose (74-106) mg/dL Calcium (8.3-10.6) mg/dL Magnesium (1.6-2.6) mg/dL Total Bilirubin (0.2-1.2) mg/dL AST (<34) U/L ALT (10-49) U/L Alkaline Phosphatase (46-116) U/L Troponin I (<54) ng/L < 3 Total Protein (5.7-8.2) g/dL Albumin (3.2-5.0) g/dL Discharge Plan Disposition Patient Disposition: Home Condition: Stable Discharge Details Clinical Impression: Harrison's palsy Primary Care Provider: Keith Suazo ED Provider: Aakash Guaman Home Meds and New Rx's Prescriptions: New prednisone 10 mg tablet 10 mg PO DIRECTED Qty: 15 0RF Rx Instructions: see taper instructions take 50 mg day 6, 40 mg day 7, 30 mg day 8, 20 mg day 9, 10 mg day 10 prednisone 20 mg tablet 60 mg PO DAILY Qty: 15 0RF valacyclovir [Valtrex] 1 gram tablet 1,000 mg PO TID Qty: 21 0RF Discharge Instructions Instructions: Harrison's palsy, Harrison's Palsy Exercises Additional Instructions: Take medications as prescribed I will hold on doxycycline until your tick panel returns Recommend using artificial tears in your eye that is affected and you may carefully tape your eye shut at night if it is not closing completely so it does not become dry Please schedule follow-up with your primary care physician for recheck next week Your tests are reassuring including MRI of your brain and CAT scan If your issue does not resolve with medications and your tick panel is negative, you may need follow-up with ENT/Neurology regarding your past history of cholesteatoma and failure to improve of your Harrison's palsy Stand Alone Forms: Portal Information Referrals: Keith Suazo [Primary Care Provider, Medicine]
[2025-11-15 12:15] LABS: Lyme Ab w Rflx to Lyme Confirm Negative (Negative)
[2025-11-17 13:12] LABS: B. miyamotoi PCR Negative (Negative); Babesia divergens/MO-1 Negative (Negative); Ehrlichia muris eauclairensis Negative (Negative)
== END 2025-11-14 17:08 | disposition home or self-care (01) ==
PROVIDERS: Physician Assistant; Emergency Provider Physician Assistant; PCP Dentist General Practice
DX: G51.0 Bell's palsy (principal); R51.9 Headache, unspecified; R13.10 Dysphagia, unspecified
CPT/HCPCS: 99284; 99285; 36415; 00123; 70496; 70498; 80053; 87798; 93005; 70551; 83735; 84484; 85025; 86618; 93010; J3490